=== PATIENT | female | born 1965 ===

== ENCOUNTER 2017-07-14 20:27 | Emergency (ER) | payer OTHER ==
[2017-07-14 20:27] VITALS: BMI 34.2
[2017-07-14 20:36] VITALS: BP 117/75; PULSE 95; RESP 16; TEMP 97.7; O2SAT 97
[2017-07-14] MEDS ORDERED: Sodium Chloride 0.9% 1,000 ML IV STA (22:22)
--- NOTE | 2017-07-14 22:23 | ED PDOC ---
Arrival/HPI - General Chief Complaint: Abdominal Pain Time Seen by Provider: 07/14/17 22:07 Historian: Patient - History of Present Illness Narrative History of Present Illness (Text): 07/14/17 22:23 Renetta Tran is a 52 year old female, whos past medical history includes cholecystectomy, diabetes, and seizures, who presents to the Emergency department complaining of sharp RLQ/suprapubic abdominal pressure with vaginal bleeding since this afternoon. Patient states tonight when she went to use the bathroom she passed a blood clot followed byvaginal bleeding. Patient notes her last normal menstrual period was 2 years prior. Patient denies any fever, chills , chest pain, shortness of breath, nausea, vomiting, dysuria, hematuria, back pain, neck pain, headache, dizziness, or any other complaints. 07/15/17 05:43 Time/Duration: 4-6 hours Symptom Onset: Sudden Symptom Course: Unchanged Activities at Onset: Light Context: Home Past Medical History - Provider Review Nursing Documentation Reviewed: Yes - Infectious Disease Hx of Infectious Diseases: None - Tetanus Immunization Tetanus Immunization: Unknown - Cardiac Hx Cardiac Disorders: No - Pulmonary Hx Respiratory Disorders: Yes Hx Asthma: Yes - Neurological Hx Neurological Disorder: Yes Hx Seizures: Yes Hx Vertigo: Yes - HEENT Hx HEENT Disorder: No - Renal Hx Renal Disorder: No - Endocrine/Metabolic Hx Endocrine Disorders: Yes Hx Diabetes Mellitus Type 2: Yes - Hematological/Oncological Hx Blood Disorders: No - Integumentary Hx Dermatological Disorder: Yes (frequent skin infections, boils) - Musculoskeletal/Rheumatological Hx Musculoskeletal Disorders: No - Gastrointestinal Hx Gastrointestinal Disorders: No Hx Gall Bladder Disease: Yes - Genitourinary/Gynecological Hx Genitourinary Disorders: Yes Hx Urinary Tract Infection: Yes - Psychiatric Hx Psychophysiologic Disorder: No Hx Anxiety: No Hx Bipolar Disorder: No Hx Depression: No Hx Emotional Abuse: No Hx Hallucinations: No Hx Panic Disorder: No Hx Post Traumatic Stress Disorder: No Hx Psychosis: No Hx Physical Abuse: No Hx Schizophrenia: No Hx Sexual Abuse: No Hx Substance Use: No (unobtainable) - Surgical History Hx Section: Yes (x 2) Hx Cholecystectomy: Yes Other/Comment: ectopic - Anesthesia Hx Anesthesia: Yes Hx Anesthesia Reactions: No Hx Malignant Hyperthermia: No - Suicidal Assessment Feels Threatened In Home Enviroment: No Family/Social History - Physician Review Nursing Documentation Reviewed: Yes Family/Social History: Unknown Family HX Smoking Status: Never Smoked Hx Alcohol Use: No (unobtainable) Hx Substance Use: No (unobtainable) Hx Substance Use Treatment: No Allergies/Home Meds Allergies/Adverse Reactions: Allergies acetaminophen [From Percocet] Allergy (Verified 07/14/17 20:32) SHORTNESS OF BREATH oxycodone HCl [From Percocet] Allergy (Verified 07/14/17 20:32) SHORTNESS OF BREATH vancomycin Allergy (Verified 07/14/17 20:32) SHORTNESS OF BREATH ITVH Home Medications: Home Meds Medication Instructions Recorded Confirmed Albuterol HFA [Ventolin HFA 90 2 puff IH [id number] PRN 01/19/16 07/14/17 mcg/actuation (8 g)] levETIRAcetam [Keppra] 250 mg PO BID 01/19/16 07/14/17 SITagliptin [Januvia] 0 mg PO BID 07/14/17 07/14/17 Review of Systems - Physician Review All systems were reviewed & negative as marked: Yes - Review of Systems Constitutional: Normal Eyes: Normal ENT: Normal Respiratory: Normal. absent: SOB, Cough Cardiovascular: Normal. absent: Chest Pain Gastrointestinal: Abdominal Pain. absent: Diarrhea, Nausea, Vomiting Genitourinary Female: Vaginal Bleeding. absent: Dysuria, Frequency, Hematuria, Urine Output Changes Musculoskeletal: Normal. absent: Back Pain, Neck Pain Skin: Normal. absent: Rash Neurological: Normal. absent: Headache, Dizziness Endocrine: Normal Hemo/Lymphatic: Normal Psychiatric: Normal Physical Exam Vital Signs Reviewed: Yes Vital Signs Temp Pulse Resp BP Pulse Ox 07/14/17 20:33 97.7 F 95 H 16 117/75 97 Temperature: Afebrile Blood Pressure: Normal Pulse: Regular Respiratory Rate: Normal Appearance: Positive for: Well-Appearing, Non-Toxic, Comfortable Pain Distress: None Mental Status: Positive for: Alert and Oriented X 3 - Systems Exam Head: Present: Atraumatic, Normocephalic Pupils: Present: PERRL Extroacular Muscles: Present: EOMI Conjunctiva: Present: Normal Mouth: Present: Moist Mucous Membranes Neck: Present: Normal Range of Motion Respiratory/Chest: Present: Clear to Auscultation, Good Air Exchange. No: Respiratory Distress, Accessory Muscle Use Cardiovascular: Present: Regular Rate and Rhythm, Normal S1, S2. No: Murmurs Abdomen: Present: Tenderness (Right adnexal tenderness). No: Distention, Peritoneal Signs Back: Present: Normal Inspection Upper Extremity: Present: Normal Inspection. No: Cyanosis, Edema Lower Extremity: Present: Normal Inspection. No: Edema Neurological: Present: GCS=15, CN II-XII Intact, Speech Normal Skin: Present: Warm, Dry, Normal Color. No: Rashes Psychiatric: Present: Alert, Oriented x 3, Normal Insight, Normal Concentration Medical Decision Making ED Course and Treatment: 07/14/17 22:23 Impression: 52 year old female presents to the Emergency department with right adexal abdominal pain and vaginal bleeding. Plan: -- US transvaginal -- Labs, urinalysis -- IV fluids -- Reassess and disposition Progress Notes: 07/15/17 00:03 Transvaginal US shows: Uterus/cervix: The endometrial stripe measures 0.57 cm, which is mildly thickened in a postmenopausal patient. This is suggestive of endometrial hyperplasia, although additional pathology cannot be excluded. The uterus measures 7.0 x 3.1 x 4.8 cm. There is a heterogeneously hypoechoic intramural fibroid at the level of the lower uterine segment measuring 1.7 x 1.7 x 1.8 cm. Within the posterior uterine wall, there is an intramural fibroid measuring 2.0 x 1.2 x 1.9 cm. A subserosal pedunculated fibroid is identified adjacent to the fundus of the uterus on the right side. This measures 3.1 x 2.4 x 3.0 cm. Right ovary: The right ovary measures 1.5 x 1.2 x 2.0 cm. There is physiologic blood flow within the right ovary. No dominant cyst or mass. Left ovary: The left ovary measures 1.9 x 1.4 x 2.2 cm. There is physiologic blood flow within the left ovary. No dominant cyst or mass. Free fluid: No free fluid. Bladder: Wall is normal thickness for degree of distention. IMPRESSION: 1. Uterine fibroids are noted above. 2. The endometrial stripe measures 0.57 cm, which is mildly thickened in a postmenopausal patient. This is suggestive of endometrial hyperplasia, although additional pathology cannot be excluded. Further clinical evaluation and follow-up ultrasonography are recommended. 07/15/17 00:32 On re-evaluation, patient feels better and is in no acute distress. I have discussed the results and plan with the patient, who expresses understanding. Patient in agreement with plan to be discharged home. Patient is stable for discharge. Patient was instructed to follow up with physician or return if symptoms worsen or new concerning symptoms arise. no rlq ttp on exam, no leukocytosis. no clincial concern for appendicits. 07/15/17 05:43 - Lab Interpretations Lab Results: 07/14/17 22:23 07/14/17 22:23 Lab Results 07/15/17 00:17: POC Glucose (mg/dL) 280 H 07/14/17 23:17: POC Glucose (mg/dL) 391 H 07/14/17 22:23: Sodium 135, Potassium 4.0, Chloride 97 L, Carbon Dioxide 23, Anion Gap 18, BUN 15, Creatinine 0.6 L, Est GFR ( Amer) > 60, Est GFR ( Non-Af Amer) > 60, Random Glucose 455 H* D, Calcium 10.7 H, Total Bilirubin 0.8 , AST 41 H, ALT 74 H, Alkaline Phosphatase 115, Total Protein 7.7, Albumin 4.3, Globulin 3.4, Albumin/Globulin Ratio 1.3, Lipase 305 H 07/14/17 22:23: Urine Color Light yellow, Urine Appearance Clear, Urine pH 6.0, Ur Specific [place] 1.015, Urine Protein Negative, Urine Glucose (UA) >=1000, Urine Ketones Negative, Urine Blood Large H, Urine Nitrate Negative, Urine Bilirubin Negative, Urine Urobilinogen 0.2, Ur Leukocyte Esterase Negative, Urine RBC 20 - 25, Urine WBC 1 - 3, Ur Epithelial Cells 3 - 4, Urine Bacteria Few, Urine HCG, Qual Negative 07/14/17 22:23: PT 10.6, INR 0.93, APTT 28.4 07/14/17 22:23: WBC 8.4, RBC 5.13, Hgb 15.5, Hct 44.4, MCV 86.5, MCH 30.2, MCHC 34.9, RDW 12.7, Plt Count 202, MPV 11.1 H, Gran % 44.6 L, Lymph % (Auto) 44.9 H , [place] % (Auto) 7.3 H, Eos % (Auto) 3.0, Baso % (Auto) 0.2, Gran # 3.75, Lymph # (Auto) 3.8 H, [place] # (Auto) 0.6, Eos # (Auto) 0.3, Baso # (Auto) 0.02 I have reviewed the lab results: Yes - RAD Interpretation Radiology Orders: 07/14/17 22:23 TRANSVAGINAL [US] Stat University Dean: Radiologist - Medication Orders Current Medication Orders: Discontinued Medications Sodium Chloride (Sodium Chloride 0.9%) 1,000 mls @ 1,000 mls/hr IV .Q1H STA Stop: 07/14/17 23:21 Last Admin: 07/14/17 23:34 Dose: 1,000 mls/hr eMAR Start Stop Document 07/14/17 23:34 SS (Rec: 07/14/17 23:34 SS [id number]) Intravenous Solution Start Date 07/14/17 Start Time 23:34 End Date 07/15/17 End time 00:34 Total Infusion Time 60 Insulin Human Regular (Humulin R) 5 units IV STAT STA Stop: 07/14/17 23:06 Last Admin: 07/14/17 23:32 Dose: 5 units Comments: eMAR Start Stop Document 07/14/17 23:32 SS (Rec: 07/14/17 23:34 SS [id number]) Intravenous Solution Start Date 07/14/17 Start Time 23:33 MAR Blood Glucose Document 07/14/17 23:32 SS (Rec: 07/14/17 23:34 SS [id number]) Blood Glucose Finger Stick Blood Glucose (70-120) 391 - Scribe Statement The provider has reviewed the documentation as recorded by the [facility] under Nicolle Paredes Provider Scribe Attestation: All medical record entries made by the Scribe were at my direction and personally dictated by me. I have reviewed the chart and agree that the record accurately reflects my personal performance of the history, physical exam, medical decision making, and the department course for this patient. I have also personally directed, reviewed, and agree with the discharge instructions and disposition. Disposition/Present on Arrival - Present on Arrival Any Indicators Present on Arrival: No History of DVT/PE: No History of Uncontrolled Diabetes: No Urinary Catheter: No History of Decub. Ulcer: No History Surgical Site Infection Following: None - Disposition Have Diagnosis and Disposition been Completed?: Yes Diagnosis: Fibroid Disposition: HOME/ ROUTINE Disposition Time: 00:32 Condition: STABLE Discharge Instructions (ExitCare): Uterine Fibroids (ED), Pelvic Pain in Women (ED) Additional Instructions: follow up with specialist. return to er with worsening symptoms or concerns. Prescriptions: Naproxen 500 mg PO BID PRN #14 tablet.dr CHICAS Reason: Pain, Mild (1-3) [facility]Outside] - Follow up with primary Abundio Abreu, [Primary Care Provider] - Follow up with primary Latrell Vargas MD [Staff Provider] - Follow up with primary Forms: [employer] (Japanese)
[2017-07-14 22:43] LABS: BASO # 0.02 K/mm3 (0.0-2.0); BASO % 0.2 % (0.0-3.0); EOS # 0.3 (0.0-0.7); GRAN # 3.75 (1.4-6.5); GRAN % 44.6 % (50.0-68.0); HEMOGLOBIN 15.5 g/dL (12.0-16.0); LYMPH # 3.8 (1.2-3.4); LYMPH % 44.9 % (22.0-35.0); MEAN CELL VOLUME 86.5 fl (80.0-105.0); MEAN CORPUSCULAR HEMOGLOBIN 30.2 pg (25.0-35.0); MEAN CORPUSCULAR HGB CONC 34.9 g/dl (31.0-37.0); MEAN PLATELET VOLUME 11.1 fl (7.0-11.0); MONO # 0.6 (0.1-0.6); MONO % 7.3 % (1.0-6.0); RBC 5.13 10^6/uL (3.5-6.1); RED CELL DISTRIBUTION WIDTH 12.7 % (11.5-14.5); WHITE BLOOD COUNT 8.4 10^3/ul (4.5-11.0)
[2017-07-14 22:48] LABS: HCG,QUALITATIVE URINE NEGATIVE (NEGATIVE); URINE APPEARANCE CLEAR (CLEAR); URINE BILIRUBIN NEGATIVE (NEGATIVE); URINE BLOOD LARGE (NEGATIVE); URINE COLOR LIGHT YELLOW (YELLOW); URINE GLUCOSE (UA) >=1000 mg/dL (NEGATIVE); URINE LEUKOCYTE ESTERASE NEGATIVE Leu/uL (NEGATIVE); URINE NITRATE NEGATIVE (NEGATIVE); URINE PROTEIN NEGATIVE mg/dL (<30 mg/dL); URINE UROBILINOGEN 0.2 E.U./dL (<1 E.U./dL)
[2017-07-14 22:53] LABS: URINE BACTERIA FEW (NEG); URINE RBC 20 - 25 /hpf (0-2)
[2017-07-14 22:57] LABS: INR 0.93 (0.93-1.08); PARTIAL THROMBOPLASTIN TIME 28.4 Seconds (25.1-36.5); PROTHROMBIN TIME 10.6 SECONDS (9.4-12.5)
[2017-07-14 23:05] LABS: ALB/GLOB RATIO 1.3 (1.1-1.8); ALBUMIN 4.3 g/dL (3.0-4.8); ALT/SGPT 74 U/L (7-56); AST/SGOT 41 U/L (14-36); BLOOD UREA NITROGEN 15 mg/dL (7-21); CALCIUM 10.7 mg/dL (8.4-10.5); GFR AFRICAN-AMERICAN > 60; GFR NON-AFRICAN AMERICAN > 60; LIPASE 305 U/L (23-300)
[2017-07-14] MEDS ORDERED: Insulin Regular 1 UNITS/0.01 ML ML IV STA (23:05)
--- NOTE | 2017-07-14 23:59 | US ---
EXAM: US Pelvis Complete, Transabdominal US Pelvis, Transvaginal EXAM DATE/TIME: 07/14/2017 10:23 PM CLINICAL HISTORY: The patient age is 52 years old and is female; Pain; Pelvic pain; Patient HX: Bleeding; Additional info: Right sided pain Facility exam id and description: Us transve transvaginal TECHNIQUE: Real-time transabdominal and transvaginal pelvic ultrasound (complete) with image documentation. Transvaginal imaging was used for better evaluation of the endometrium and adnexa. COMPARISON: CT - ABD PELVIS W/O PO OR IV CONT 2015-07-16 23:10 FINDINGS: Uterus/cervix: The endometrial stripe measures 0.57 cm, which is mildly thickened in a postmenopausal patient. This is suggestive of endometrial hyperplasia, although additional pathology cannot be excluded. The uterus measures 7.0 x 3.1 x 4.8 cm. There is a heterogeneously hypoechoic intramural fibroid at the level of the lower uterine segment measuring 1.7 x 1.7 x 1.8 cm. Within the posterior uterine wall, there is an intramural fibroid measuring 2.0 x 1.2 x 1.9 cm. A subserosal pedunculated fibroid is identified adjacent to the fundus of the uterus on the right side. This measures 3.1 x 2.4 x 3.0 cm. Right ovary: The right ovary measures 1.5 x 1.2 x 2.0 cm. There is physiologic blood flow within the right ovary. No dominant cyst or mass. Left ovary: The left ovary measures 1.9 x 1.4 x 2.2 cm. There is physiologic blood flow within the left ovary. No dominant cyst or mass. Free fluid: No free fluid. Bladder: Wall is normal thickness for degree of distention. IMPRESSION: 1. Uterine fibroids are noted above. 2. The endometrial stripe measures 0.57 cm, which is mildly thickened in a postmenopausal patient. This is suggestive of endometrial hyperplasia, although additional pathology cannot be excluded. Further clinical evaluation and follow-up ultrasonography are recommended.
== END 2017-07-15 00:32 | disposition home or self-care (01) ==
LOC: ED 20:27
DX: D25.9 Leiomyoma of uterus, unspecified (principal); E11.9 Type 2 diabetes mellitus without complications
CPT/HCPCS: 76830; 80053; 81001; 82948; 83690; 84703; 85025; 85610; 85730; 96360; 99283; J7040

== ENCOUNTER 2017-09-16 20:11 | Emergency (ER) | payer OTHER ==
[2017-09-16 20:12] VITALS: BMI 24.4
[2017-09-16 20:36] VITALS: RESP 18
[2017-09-16] MEDS ORDERED: Sodium Chloride 0.9% 1,000 ML IV STA (20:39)
[2017-09-16 21:08] LABS: BASO # 0.02 K/mm3 (0.0-2.0); BASO % 0.1 % (0.0-3.0); EOS # 0.1 (0.0-0.7); EOS % 0.4 % (1.5-5.0); GRAN # 11.65 (1.4-6.5); GRAN % 73.9 % (50.0-68.0); HEMOGLOBIN 15.9 g/dL (12.0-16.0); LYMPH # 2.6 (1.2-3.4); LYMPH % 16.2 % (22.0-35.0); MEAN CELL VOLUME 87.7 fl (80.0-105.0); MEAN CORPUSCULAR HEMOGLOBIN 30.9 pg (25.0-35.0); MEAN CORPUSCULAR HGB CONC 35.3 g/dl (31.0-37.0); MEAN PLATELET VOLUME 10.8 fl (7.0-11.0); MONO # 1.5 (0.1-0.6); MONO % 9.4 % (1.0-6.0); RBC 5.14 10^6/uL (3.5-6.1); WHITE BLOOD COUNT 15.8 10^3/ul (4.5-11.0)
[2017-09-16 21:21] LABS: ALB/GLOB RATIO 1.3 (1.1-1.8); ALBUMIN 4.7 g/dL (3.0-4.8); ALT/SGPT 59 U/L (7-56); AST/SGOT 29 U/L (14-36); BLOOD UREA NITROGEN 17 mg/dL (7-21); CALCIUM 11.2 mg/dL (8.4-10.5); GFR AFRICAN-AMERICAN > 60; GFR NON-AFRICAN AMERICAN > 60
--- NOTE | 2017-09-16 22:22 | ED PDOC ---
Arrival/HPI - General Historian: Patient - History of Present Illness Symptom Onset: Gradual Symptom Course: Unchanged Activities at Onset: Light Context: Home - General Chief Complaint: Abdominal Pain Time Seen by Provider: 09/16/17 20:32 - History of Present Illness Narrative History of Present Illness (Text): 09/16/17 20:35 Renetta Tran is a 52 year old female, whose past medical history includes asthma, vertigo, diabetes, UTI, and cholecystectomy, who presents to the ED complaining of abdominal pain. Patient states she has been experiencing lower abdominal pain with associated back pain and vomiting. Patient states she was currently being treated for UTI. Patient denies any fever, chills, chest pain, shortness of breath, diarrhea, back pain, neck pain, headache, dizziness, or any other complaints. (Matthew Gilbert) Past Medical History - Provider Review Nursing Documentation Reviewed: Yes - Infectious Disease Hx of Infectious Diseases: None - Tetanus Immunization Tetanus Immunization: Unknown - Reproductive Menopause: Yes - Cardiac Hx Cardiac Disorders: Yes - Pulmonary Hx Respiratory Disorders: Yes Hx Asthma: Yes - Neurological Hx Neurological Disorder: Yes Hx Seizures: Yes Hx Vertigo: Yes - HEENT Hx HEENT Disorder: No - Renal Hx Renal Disorder: No - Endocrine/Metabolic Hx Endocrine Disorders: Yes Hx Diabetes Mellitus Type 2: Yes - Hematological/Oncological Hx Blood Disorders: No - Integumentary Hx Dermatological Disorder: Yes (frequent skin infections, boils) - Musculoskeletal/Rheumatological Hx Musculoskeletal Disorders: No - Gastrointestinal Hx Gastrointestinal Disorders: Yes Hx Gall Bladder Disease: Yes - Genitourinary/Gynecological Hx Genitourinary Disorders: Yes Hx Urinary Tract Infection: Yes - Psychiatric Hx Psychophysiologic Disorder: No Hx Anxiety: No Hx Bipolar Disorder: No Hx Depression: No Hx Emotional Abuse: No Hx Hallucinations: No Hx Panic Disorder: No Hx Post Traumatic Stress Disorder: No Hx Psychosis: No Hx Physical Abuse: No Hx Schizophrenia: No Hx Sexual Abuse: No Hx Substance Use: No (unobtainable) - Surgical History Hx Section: Yes (x 2) Hx Cholecystectomy: Yes Other/Comment: ectopic - Anesthesia Hx Anesthesia: Yes Hx Anesthesia Reactions: No Hx Malignant Hyperthermia: No - Suicidal Assessment Feels Threatened In Home Enviroment: No Family/Social History - Physician Review Nursing Documentation Reviewed: Yes Family/Social History: Unknown Family HX Smoking Status: Never Smoked Hx Alcohol Use: No (unobtainable) Hx Substance Use: No (unobtainable) Hx Substance Use Treatment: No Allergies/Home Meds Allergies/Adverse Reactions: Allergies oxycodone HCl [From Percocet] Allergy (Verified 09/16/17 20:23) SHORTNESS OF BREATH vancomycin Allergy (Verified 09/16/17 20:23) SHORTNESS OF BREATH ITVH Review of Systems - Physician Review All systems were reviewed & negative as marked: Yes - Review of Systems Constitutional: Normal. absent: Fevers Eyes: Normal ENT: Normal Respiratory: Normal. absent: SOB, Cough Cardiovascular: Normal Gastrointestinal: Abdominal Pain, Nausea, Vomiting Genitourinary Female: Normal Musculoskeletal: Back Pain. absent: Neck Pain Skin: Normal Neurological: Normal Endocrine: Normal Hemo/Lymphatic: Normal Psychiatric: Normal Physical Exam Vital Signs Reviewed: Yes Temperature: Afebrile Blood Pressure: Normal Pulse: Regular Respiratory Rate: Normal Appearance: Positive for: Well-Appearing, Non-Toxic, Comfortable Pain Distress: None Mental Status: Positive for: Alert and Oriented X 3 - Systems Exam Head: Present: Atraumatic, Normocephalic Pupils: Present: PERRL Extroacular Muscles: Present: EOMI Conjunctiva: Present: Normal Mouth: Present: Moist Mucous Membranes Neck: Present: Normal Range of Motion Respiratory/Chest: Present: Clear to Auscultation, Good Air Exchange. No: Respiratory Distress, Accessory Muscle Use Cardiovascular: Present: Regular Rate and Rhythm, Normal S1, S2. No: Murmurs Abdomen: Present: Tenderness (Tenderness to lower abdomen). No: Distention, Peritoneal Signs Back: Present: Normal Inspection Upper Extremity: Present: Normal Inspection. No: Cyanosis, Edema Lower Extremity: Present: Normal Inspection. No: Edema Neurological: Present: GCS=15, CN II-XII Intact, Speech Normal Skin: Present: Warm, Dry, Normal Color. No: Rashes Psychiatric: Present: Alert, Oriented x 3, Normal Insight, Normal Concentration Vital Signs Temp Pulse Resp BP Pulse Ox 09/17/17 01:34 89 18 115/63 96 09/17/17 00:03 98.4 F 94 H 18 109/67 96 09/16/17 21:56 101 H 18 107/64 98 09/16/17 20:25 99.5 F 112 H 18 130/82 95 Medical Decision Making - Lab Interpretations I have reviewed the lab results: Yes - RAD Interpretation Salad Chef: Radiologist ED Course and Treatment: 09/16/17 20:35 Impression: 52 year old female c/o lower abdominal pain, back pain, and vomiting. Differential Diagnosis included but are not limited to: Plan: -- CT Abdomen and Pelvis w/o contrast -- Labs -- UA -- IV fluids -- Toradol -- Zofran -- Reassess and disposition Prior Visits: Notes and results from previous visits were reviewed. On 07/26/2017, pt was seen in the Emergency department for intermittent chest pain and subjective fever. Pt was admitted to the hospital for further evaluation. 09/17/17 01:19 CT Abdomen and Pelvis shows: Lung bases: Unremarkable. No mass. No consolidation. ABDOMEN: Liver: There is a diffuse decrease in hepatic parenchymal density, consistent with fatty infiltration. Gallbladder and bile ducts: There has been a cholecystectomy. No ductal dilation. Pancreas: Unremarkable. No ductal dilation. Spleen: Stable low-density lesion in the spleen measuring 3.2 x 3.4 x 2.5 cm. Adrenals: Unremarkable. No mass. Kidneys and ureters: Unremarkable. No obstructing stones. No hydronephrosis. Stomach and bowel: Unremarkable. No obstruction. No mucosal thickening. Appendix: No findings to suggest acute appendicitis. Normal appendix. PELVIS: Bladder: Unremarkable. No stones. Reproductive: Unremarkable as visualized. ABDOMEN and PELVIS: Intraperitoneal space: Unremarkable. No free air. No significant fluid collection. Bones/joints: No acute fracture. No dislocation. Soft tissues: There is a small fat-containing umbilical hernia. Vasculature: There are numerous benign phleboliths in the pelvis. No abdominal aortic aneurysm. Lymph nodes: Unremarkable. No enlarged lymph nodes. IMPRESSION: No acute intra-abdominal or pelvic abnormality. Fatty liver. Stable low density lytic lesion. No followup necessary. Cholecystectomy. 09/17/17 01:36 Pt was offered admission to the hospital. Pt declined, states she would prefer to try outpt therapy first. Pt states she feels better. I have discussed the results and plan with the patient, who expresses understanding. Patient is stable for discharge. Patient was instructed to follow up with physician or return if symptoms worsen or new concerning symptoms arise. (Matthew Gilbert) - Lab Interpretations Microbiology Results: Microbiology Results 09/16/17 23:38 Urine,Clean Catch Urine Culture - Final Escherichia Coli Lactobacillus Species Lab Results: 09/16/17 20:55 09/16/17 20:55 Lab Results 09/16/17 23:38: Urine Color Yellow, Urine Appearance Cloudy, Urine pH 6.0, Ur Specific [place] >= 1.030, Urine Protein 30 H, Urine Glucose (UA) >=1000, Urine Ketones >=80, Urine Blood Moderate H, Urine Nitrate Positive H, Urine Bilirubin Negative, Urine Urobilinogen 1.0 H, Ur Leukocyte Esterase Small H, Urine RBC 2 - 5, Urine WBC Tntc, Ur Epithelial Cells 0 - 2, Urine Bacteria Many 09/16/17 20:55: Sodium 137, Potassium 4.5, Chloride 98, Carbon Dioxide 25, Anion Gap 18, BUN 17, Creatinine 0.7, Est GFR ( Amer) > 60, Est GFR (Non- Af Amer) > 60, Random Glucose 303 H* D, Calcium 11.2 H, Total Bilirubin 2.0 H, AST 29, ALT 59 H, Alkaline Phosphatase 126, Total Protein 8.4 H, Albumin 4.7, Globulin 3.7, Albumin/Globulin Ratio 1.3 09/16/17 20:55: WBC 15.8 H D, RBC 5.14, Hgb 15.9, Hct 45.1, MCV 87.7, MCH 30.9, MCHC 35.3, RDW 13.0, Plt Count 226, MPV 10.8, Gran % 73.9 H, Lymph % (Auto) 16.2 L, [place] % (Auto) 9.4 H, Eos % (Auto) 0.4 L, Baso % (Auto) 0.1, Gran # 11.65 H, Lymph # (Auto) 2.6, [place] # (Auto) 1.5 H, Eos # (Auto) 0.1, Baso # (Auto ) 0.02 - RAD Interpretation Radiology Orders: 09/16/17 20:39 ABD & PELVIS W/O PO OR IV CONT [CT] Stat - Medication Orders Current Medication Orders: Discontinued Medications Sodium Chloride (Sodium Chloride 0.9%) 1,000 mls @ 100 mls/hr IV .Q10H STA Stop: 09/17/17 06:38 Last Admin: 09/16/17 21:02 Dose: 100 mls/hr eMAR Start Stop Document 09/16/17 21:02 CNR (Rec: 09/16/17 21:02 [facility] [id number] Intravenous Solution Start Date 09/16/17 Start Time 21:02 Ceftriaxone Sodium (Rocephin 1 Gram Ivpb) 1 gm in 100 mls @ 200 mls/hr IVPB STAT STA PRN Reason: Protocol Stop: 09/17/17 01:47 Last Admin: 09/17/17 01:29 Dose: 200 mls/hr eMAR Start Stop Document 09/17/17 01:29 CNR (Rec: 09/17/17 01:30 CNR [id number]) Intravenous Solution Start Date 09/17/17 Start Time 01:30 End Date 09/17/17 End time 01:55 Total Infusion Time 25 Ketorolac Tromethamine (Toradol) 15 mg IVP STAT STA Stop: 09/16/17 20:43 Last Admin: 09/16/17 21:02 Dose: 15 mg MAR Pain Assessment Document 09/16/17 21:02 CNR (Rec: 09/16/17 21:02 [facility] [id number] Pain Reassessment Is this a pain reassessment? Yes Location Pain Location Body Site Abdomen Description Description Constant IVP Administration Document 09/16/17 21:02 CNR (Rec: 09/16/17 21:02 [facility]NR [facility] [id number] Charges for Administration # of IVP Administrations 1 Ondansetron HCl (Zofran Inj) 4 mg IVP STAT STA Stop: 09/16/17 20:40 Last Admin: 09/16/17 21:03 Dose: 4 mg IVP Administration Document 09/16/17 21:03 CNR (Rec: 09/16/17 21:03 [facility]NR [facility] [id number] Charges for Administration # of IVP Administrations 1 - Scribe Statement The provider has reviewed the documentation as recorded by the Scribe - Scribe Statement Nicolle Paredes All medical record entries made by the Scribe were at my direction and personally dictated by me. I have reviewed the chart and agree that the record accurately reflects my personal performance of the history, physical exam, medical decision making, and the department course for this patient. I have also personally directed, reviewed, and agree with the discharge instructions and disposition. (Matthew Gilbert) Disposition/Present on Arrival - Present on Arrival Any Indicators Present on Arrival: No History of DVT/PE: No History of Uncontrolled Diabetes: Yes Urinary Catheter: No History of Decub. Ulcer: No History Surgical Site Infection Following: None - Disposition Have Diagnosis and Disposition been Completed?: Yes Disposition Time: 01:35 - Disposition Diagnosis: Pyelonephritis Disposition: HOME/ ROUTINE Condition: FAIR Discharge Instructions (ExitCare): Urinary Tract Infections in Adults, Kidney Infection Prescriptions: Cephalexin [Keflex] 500 mg PO BID #20 capsule Referrals: Neetu Flanagan MD [Primary Care Provider] - Follow up with primary Forms: [facility] ([place] Islander)
[2017-09-17 00:04] VITALS: TEMP 98.4; O2SAT 96
[2017-09-17 00:11] LABS: URINE BILIRUBIN NEGATIVE (NEGATIVE); URINE BLOOD MODERATE (NEGATIVE); URINE GLUCOSE (UA) >=1000 mg/dL (NEGATIVE); URINE LEUKOCYTE ESTERASE SMALL Leu/uL (NEGATIVE); URINE PROTEIN 30 mg/dL (<30 mg/dL)
[2017-09-17 00:28] LABS: URINE APPEARANCE CLOUDY (CLEAR); URINE COLOR YELLOW (YELLOW)
[2017-09-17 00:31] LABS: URINE BACTERIA MANY (NEG); URINE EPITHELIAL CELLS 0 - 2 /hpf (0-5); URINE WBC TNTC /hpf (0-6)
--- NOTE | 2017-09-17 00:59 | CT ---
EXAM: CT Abdomen and Pelvis Without Intravenous Contrast CLINICAL HISTORY: 52 years old, female; Pain; Abdominal pain; Additional info: R/O stone TECHNIQUE: Axial computed tomography images of the abdomen and pelvis without intravenous contrast. All CT scans at this facility use one or more dose reduction techniques, viz.: automated exposure control; ma/kV adjustment per patient size (including targeted exams where dose is matched to indication; i.e. head); or iterative reconstruction technique. Coronal and sagittal reformatted images were created and reviewed. COMPARISON: CT - ABD PELVIS W/O PO OR IV CONT 2015-07-16 23:10 FINDINGS: Lung bases: Unremarkable. No mass. No consolidation. ABDOMEN: Liver: There is a diffuse decrease in hepatic parenchymal density, consistent with fatty infiltration. Gallbladder and bile ducts: There has been a cholecystectomy. No ductal dilation. Pancreas: Unremarkable. No ductal dilation. Spleen: Stable low-density lesion in the spleen measuring 3.2 x 3.4 x 2.5 cm. Adrenals: Unremarkable. No mass. Kidneys and ureters: Unremarkable. No obstructing stones. No hydronephrosis. Stomach and bowel: Unremarkable. No obstruction. No mucosal thickening. Appendix: No findings to suggest acute appendicitis. Normal appendix. PELVIS: Bladder: Unremarkable. No stones. Reproductive: Unremarkable as visualized. ABDOMEN and PELVIS: Intraperitoneal space: Unremarkable. No free air. No significant fluid collection. Bones/joints: No acute fracture. No dislocation. Soft tissues: There is a small fat-containing umbilical hernia. Vasculature: There are numerous benign phleboliths in the pelvis. No abdominal aortic aneurysm. Lymph nodes: Unremarkable. No enlarged lymph nodes. IMPRESSION: No acute intra-abdominal or pelvic abnormality. Fatty liver. Stable low density lytic lesion. No followup necessary. Cholecystectomy.
[2017-09-17] MEDS ORDERED: cefTRIAXone 1 gm 1 GM/100 ML BAG IVPB STA (01:18)
[2017-09-17 01:36] VITALS: BP 115/63; PULSE 89
== END 2017-09-17 01:58 | disposition home or self-care (01) ==
LOC: ED 20:11
DX: N10 Acute pyelonephritis (principal); E11.9 Type 2 diabetes mellitus without complications; Z90.49 Acquired absence of other specified parts of digestive tract
CPT/HCPCS: 74176; 80053; 81001; 85025; 87086; 87181; 96365; 96375; 99284; J0696; J1885; J2405; J7040

== ENCOUNTER 2018-02-18 17:30 | Emergency (ER) | payer OTHER ==
[2018-02-18 17:31] VITALS: BMI 24.4
[2018-02-18 18:09] VITALS: RESP 18; TEMP 98.3; O2SAT 98
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
[2018-02-18 20:17] VITALS: BP 114/64; PULSE 81
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
--- NOTE | 2018-02-19 08:28 | RAD ---
Date of service: 02/18/2018 PROCEDURE: Radiographs of the Left Shoulder HISTORY: L shoulder pain COMPARISON: No prior. FINDINGS: BONES: Normal. No fracture. JOINTS: Normal. Glenohumeral and acromioclavicular joints preserved. No osteoarthritis. SOFT TISSUES: Normal. OTHER FINDINGS: None. IMPRESSION: Normal radiographs of the left shoulder.
== END 2018-02-18 20:16 | disposition home or self-care (01) ==
LOC: ED 17:30
DX: M25.512 Pain in left shoulder (principal); S40.012A Contusion of left shoulder, initial encounter; Y04.0XXA Assault by unarmed brawl or fight, initial encounter; Y92.9 Unspecified place or not applicable
CPT/HCPCS: 71046; 73030; 96372; 99284; J1885

== ENCOUNTER 2018-06-15 21:00 | Emergency (ER) | payer OTHER ==
[2018-06-15 21:00] VITALS: BMI 24.4
[2018-06-15 21:23] VITALS: RESP 18; O2SAT 98
[2018-06-15] MEDS ORDERED: Sodium Chloride 0.9% 1,000 ML IV STA (21:47)
[2018-06-15] MEDS ORDERED: DiphenhydrAMINE 50 mg/ml Inj IVP STA (21:47)
[2018-06-15] MEDS ORDERED: Albuterol-Ipratrop 3 mg / 0.5 (3 ml) UD IH STA ×2 (21:47)
--- NOTE | 2018-06-15 21:52 | ED PDOC ---
Arrival/HPI - General Historian: Patient - History of Present Illness Narrative History of Present Illness (Text): 06/15/18 21:49 53 y/o female, pmh including copd/dm, post menopausal, allergic to vanco and oxycodone, c/o unable to breath x 1 hour and chest tightness. Pt. stated that she was about to go to sleep, laying down, feels nose is congested, unable to breath with shortness of breath and chest tightness/pain, no radiating pain, no palpitation, no numbness or tingling, no other medical or psychological complaints. <Natan Prince - Last Filed: 06/16/18 01:01> <Rashad Garcia - Last Filed: 06/16/18 02:08> - General Chief Complaint: Chest Pain Past Medical History - Provider Review Nursing Documentation Reviewed: Yes - Infectious Disease Hx of Infectious Diseases: None - Tetanus Immunization Tetanus Immunization: Unknown - Cardiac Hx Cardiac Disorders: Yes - Pulmonary Hx Respiratory Disorders: Yes Hx Asthma: Yes - Neurological Hx Neurological Disorder: Yes Hx Seizures: Yes Hx Vertigo: Yes - HEENT Hx HEENT Disorder: No - Renal Hx Renal Disorder: No - Endocrine/Metabolic Hx Endocrine Disorders: Yes Hx Diabetes Mellitus Type 2: Yes - Hematological/Oncological Hx Blood Disorders: No - Integumentary Hx Dermatological Disorder: Yes (frequent skin infections, boils) - Musculoskeletal/Rheumatological Hx Musculoskeletal Disorders: No - Gastrointestinal Hx Gastrointestinal Disorders: Yes Hx Gall Bladder Disease: Yes - Genitourinary/Gynecological Hx Genitourinary Disorders: Yes Hx Urinary Tract Infection: Yes - Psychiatric Hx Psychophysiologic Disorder: No Hx Anxiety: No Hx Bipolar Disorder: No Hx Depression: No Hx Emotional Abuse: No Hx Hallucinations: No Hx Panic Disorder: No Hx Post Traumatic Stress Disorder: No Hx Psychosis: No Hx Physical Abuse: No Hx Schizophrenia: No Hx Sexual Abuse: No Hx Substance Use: No (unobtainable) - Surgical History Hx Section: Yes (x 2) Hx Cholecystectomy: Yes Other/Comment: ectopic - Anesthesia Hx Anesthesia: Yes Hx Anesthesia Reactions: No Hx Malignant Hyperthermia: No - Suicidal Assessment Feels Threatened In Home Enviroment: No <Natan Prince - Last Filed: 06/16/18 01:01> Family/Social History - Physician Review Nursing Documentation Reviewed: Yes Family/Social History: Unknown Family HX Smoking Status: Never Smoked Hx Alcohol Use: No (unobtainable) Hx Substance Use: No (unobtainable) Hx Substance Use Treatment: No <Natan Prince - Last Filed: 06/16/18 01:01> Allergies/Home Meds <Natan Prince - Last Filed: 06/16/18 01:01> <Rashad Garcia - Last Filed: 06/16/18 02:08> Allergies/Adverse Reactions: Allergies oxycodone HCl [From Percocet] Allergy (Verified 06/15/18 21:42) SHORTNESS OF BREATH vancomycin Allergy (Verified 06/15/18 21:42) SHORTNESS OF BREATH ITVH Review of Systems - Review of Systems Constitutional: absent: Fatigue, Fevers Eyes: absent: Vision Changes ENT: absent: Hearing Changes Respiratory: SOB. absent: Cough, Sputum, Wheezing Cardiovascular: Other (+chest tightness). absent: Chest Pain Gastrointestinal: absent: Abdominal Pain, Nausea Skin: absent: Rash, Pruritis Neurological: absent: Headache, Dizziness Psychiatric: absent: Anxiety, Depression <Natan Prince - Last Filed: 06/16/18 01:01> Physical Exam Vital Signs Temp Pulse Resp BP Pulse Ox 06/15/18 21:21 98.3 F 96 H 18 137/78 98 - Systems Exam Head: Present: Atraumatic, Normocephalic Pupils: Present: PERRL Extroacular Muscles: Present: EOMI Conjunctiva: Present: Normal Mouth: Present: Moist Mucous Membranes Nose (External): Present: Atraumatic. No: Abrasion, Contusion, Laceration Nose (Internal): Present: Normal Inspection, No Active Bleeding, Rhinorrhea. No: Edematous, Septal Deviation Neck: Present: Normal Range of Motion Respiratory/Chest: Present: Decreased Breath Sounds. No: Respiratory Distress, Accessory Muscle Use, Rales, Retracting, Rhonchi, Tachypneic Cardiovascular: Present: Regular Rate and Rhythm, Normal S1, S2. No: Murmurs Abdomen: No: Tenderness, Distention, Peritoneal Signs Back: Present: Normal Inspection Upper Extremity: Present: Normal Inspection. No: Cyanosis, Edema Lower Extremity: Present: Normal Inspection. No: Edema Neurological: Present: GCS=15, CN II-XII Intact, Speech Normal Skin: Present: Warm, Dry, Normal Color. No: Rashes Psychiatric: Present: Alert, Oriented x 3, Normal Insight, Normal Concentration <Natan Prince - Last Filed: 06/16/18 01:01> Vital Signs Temp Pulse Resp BP Pulse Ox 06/15/18 21:21 98.3 F 96 H 18 137/78 98 <Rashad Garcia - Last Filed: 06/16/18 02:08> Medical Decision Making ED Course and Treatment: 06/15/18 21:52 -labs -ekg -cxr -IVF/benadryl/duoneb -Observe and reassess 06/15/18 23:58 -EKG: NSR @ 96 BPM, no ST elevation or depression, no T wave inversion. -Chest xray ER wet read: no active disease . -Labs show no acute findings except glucose 331 (253 now after IVF) -BNP within normal limit -Mg within normal limit -Trop within normal limit -Dimer is negative -I recommend admission as she still feels shortness of breath with mild to moderate improvement, aspirin/nitro/solumedrol ordered but she refused, stated that she has to leave now. -AMA AMA ER The patient refuses to stay in the Emergency Room (ER) to continue the care and wishes to leave the emergency department against my medical advice. Patient was told that staying in the ER is necessary and a full explanation of the reasons why was given, and understood by the patient with alert and oriented x4. The risk of leaving were explained in laymans term and including but not limited to cardiac arrhythmia, coronary artery disease, pulmonary embolism, respiratory distress, organ failures, fall, syncope, cardiopulmonary disease, pain, worsening of condition, permanent disability and from an undiagnosed or untreated condition. The patient accepts these risks, and is in my judgment is competent and capable of understanding the clinical situation and explanation of the risk of leaving. The patient is able to verbally repeated me back the above explained risks and benefits back to me, and verbally expressed understanding. Patient was given the opportunity to ask questions and change mind. The patient was instructed regarding the best care for the present symptoms, and to follow up as soon as possible with the primary care doctor including specialist or return to the emergency department at any time for continuing care. -You declined to be admitted. you leave against my advice. Please follow up with your own pmd and floor coverings salesperson/drug worker within 2 days, return to the ER for any new or worsening signs or symptoms. - RAD Interpretation Radiology Orders: 06/15/18 21:47 CHEST PORTABLE [RAD] Stat - Medication Orders Current Medication Orders: Albuterol/Ipratropium (Duoneb 3 Mg/0.5 Mg (3 Ml) Ud) 3 ml IH STAT STA Stop: 06/15/18 21:48 Albuterol/Ipratropium (Duoneb 3 Mg/0.5 Mg (3 Ml) Ud) 3 ml IH STAT STA Stop: 06/15/18 21:48 Diphenhydramine HCl (Benadryl) 50 mg IVP STAT STA Stop: 06/15/18 21:48 Sodium Chloride (Sodium Chloride 0.9%) 1,000 mls @ 999 mls/hr IV .Q1H1M STA Stop: 06/15/18 22:47 <Natan Prince Q - Last Filed: 06/16/18 01:01> - Lab Interpretations Lab Results: D-Dimer, Quantitative < 200 ng/mlDDU (0-243) 06/15/18 23:12 Troponin I < 0.01 ng/mL 06/15/18 22:03 NT-Pro-B Natriuret Pep 14.9 pg/mL (0-450) 06/15/18 22:03 Total Bilirubin 0.7 mg/dL (0.2-1.3) 06/15/18 22:03 AST 30 U/L (14-36) 06/15/18 22:03 ALT 44 U/L (7-56) 06/15/18 22:03 Alkaline Phosphatase 120 U/L (38-126) 06/15/18 22:03 Total Protein 7.4 g/dL (5.8-8.3) 06/15/18 22:03 Albumin 4.1 g/dL (3.0-4.8) 06/15/18 22:03 Globulin 3.3 gm/dL 06/15/18 22:03 Albumin/Globulin Ratio 1.2 (1.1-1.8) 06/15/18 22:03 - RAD Interpretation Radiology Orders: 06/15/18 21:47 CHEST PORTABLE [RAD] Stat - Medication Orders Current Medication Orders: Discontinued Medications Albuterol/Ipratropium (Duoneb 3 Mg/0.5 Mg (3 Ml) Ud) 3 ml IH STAT STA Stop: 06/15/18 21:48 Last Admin: 06/15/18 22:10 Dose: 3 ml Albuterol/Ipratropium (Duoneb 3 Mg/0.5 Mg (3 Ml) Ud) 3 ml IH STAT STA Stop: 06/15/18 21:48 Last Admin: 06/15/18 22:10 Dose: 3 ml Diphenhydramine HCl (Benadryl) 50 mg IVP STAT STA Stop: 06/15/18 21:48 Last Admin: 06/15/18 22:10 Dose: 50 mg IVP Administration Document 06/15/18 22:10 IT (Rec: 06/15/18 22:10 IT [facility] [id number]) Charges for Administration # of IVP Administrations 1 Sodium Chloride (Sodium Chloride 0.9%) 1,000 mls @ 999 mls/hr IV .Q1H1M STA Stop: 06/15/18 22:47 Last Admin: 06/15/18 22:11 Dose: 999 mls/hr eMAR Start Stop Document 06/15/18 22:11 IT (Rec: 06/15/18 22:11 IT [facility] [id number]) Intravenous Solution Start Date 06/15/18 Start Time 22:11 Insulin Human Regular (Humulin R) 6 units SC STAT STA Stop: 06/15/18 22:39 Last Admin: 06/15/18 23:30 Dose: Not Given Non-Admin Reason: as per SHARLA Prince <Rashad Garcia - Last Filed: 06/16/18 02:08> - PA / [employer] CELEBRANT / Resident Statement ANALY has reviewed & agrees with the documentation as recorded. ANALY has examined the patient and agrees with the treatment plan. <Natan Prince - Last Filed: 06/16/18 01:01> - PA / AB[employer]IGINAL [employer]EREMONIAL CELEBRANT / Resident Statement ANALY has reviewed & agrees with the documentation as recorded. ANALY has examined the patient and agrees with the treatment plan. <Rashad Garcia - Last Filed: 06/16/18 02:08> Disposition/Present on Arrival - Present on Arrival Any Indicators Present on Arrival: No History of DVT/PE: No History of Uncontrolled Diabetes: Yes Urinary Catheter: No History of Decub. Ulcer: No History Surgical Site Infection Following: None - Disposition Disposition Time: 23:58 <Natan Prince Jose - Last Filed: 06/16/18 01:01> - Present on Arrival Any Indicators Present on Arrival: No - Disposition Have Diagnosis and Disposition been Completed?: Yes <Rasahd Garcia - Last Filed: 06/16/18 02:08> - Disposition Diagnosis: SOB (shortness of breath) Disposition: AGAINST MEDICAL ADVICE Condition: STABLE Additional Instructions: -You declined to be admitted. you leave against my advice. Please follow up with your own pmd and floor coverings salesperson/drug worker within 2 days, return to the ER for any new or worsening signs or symptoms. Prescriptions: Loratadine [Claritin] 10 mg PO DAILY #7 tab Fluticasone Propionate [Flonase Allergy Relief] 1 spray NS DAILY #1 spray.susp RX: Prednisone 50 mg PO DAILY #5 tablet RX: Albuterol HFA [Ventolin HFA 90 mcg/actuation (8 g)] 2 puff IH [id number] PRN #1 in PRN Reason: Other Referrals: Mary Hebert [Primary Care Provider] - Follow up with primary Forms: [employer] (Samoan), WORK NOTE
[2018-06-15 22:11] LABS: BASO # 0.03 K/mm3 (0.0-2.0); BASO % 0.3 % (0.0-3.0); EOS # 0.2 (0.0-0.7); EOS % 2.1 % (1.5-5.0); GRAN # 6.7 (1.4-6.5); GRAN % 60.8 % (50.0-68.0); HEMOGLOBIN 14.6 g/dL (12.0-16.0); LYMPH # 3.1 (1.2-3.4); LYMPH % 28.5 % (22.0-35.0); MEAN CELL VOLUME 88.1 fl (80.0-105.0); MEAN CORPUSCULAR HEMOGLOBIN 30.4 pg (25.0-35.0); MEAN CORPUSCULAR HGB CONC 34.4 g/dl (31.0-37.0); MEAN PLATELET VOLUME 10.6 fl (7.0-11.0); MONO # 0.9 (0.1-0.6); MONO % 8.3 % (1.0-6.0); RBC 4.81 10^6/uL (3.5-6.1); RED CELL DISTRIBUTION WIDTH 12.9 % (11.5-14.5)
[2018-06-15 22:21] LABS: ALB/GLOB RATIO 1.2 (1.1-1.8); ALBUMIN 4.1 g/dL (3.0-4.8); ALT/SGPT 44 U/L (7-56); AST/SGOT 30 U/L (14-36); BLOOD UREA NITROGEN 15 mg/dL (7-21); CALCIUM 9.5 mg/dL (8.4-10.5); GFR NON-AFRICAN AMERICAN > 60
[2018-06-15 22:31] LABS: B-TYPE NATRIURETIC PEPTIDE 14.9 pg/mL (0-450); TROPONIN I < 0.01 ng/mL
[2018-06-15] MEDS ORDERED: Insulin Regular 1 UNITS/0.01 ML ML SC STA (22:38)
[2018-06-15 23:55] VITALS: PULSE 101
[2018-06-16 00:22] VITALS: BP 106/70; TEMP 98.2
--- NOTE | 2018-06-16 13:01 | RAD ---
/ate of service: 06/15/2018 HISTORY: medical clearance COMPARISON: February 18, 2018 FINDINGS: LUNGS: No active pulmonary disease. PLEURA: No significant pleural effusion identified, no pneumothorax apparent. CARDIOVASCULAR: No atherosclerotic calcification present Normal. OSSEOUS STRUCTURES: No significant abnormalities. VISUALIZED UPPER ABDOMEN: Normal. OTHER FINDINGS: None. IMPRESSION: No active disease. No significant interval change compared to the prior examination(s). Concordant results with the preliminary interpretation rendered by the emergency department physician procedure. /,
--- NOTE | 2018-06-16 18:27 | CARD ---
APPROVED REPORT Date of service: 06/15/2018 EKG Measurement Heart [id number] <Conclusion> Normal sinus rhythm Normal ECG
== END 2018-06-16 00:21 | disposition left against medical advice (07) ==
LOC: ED 21:00
DX: R06.02 Shortness of breath (principal); J44.9 Chronic obstructive pulmonary disease, unspecified; E11.9 Type 2 diabetes mellitus without complications
CPT/HCPCS: 71045; 80053; 82948; 83880; 84484; 85025; 85378; 93005; 96374; 99284; J1200; J7030